=== PATIENT | male | born 2005 | race Two or more races ===

== ENCOUNTER 2024-07-08 12:56 | Emergency (ER) | payer OTHER ==
[~2024-07-08] VITALS: Ht 190.5 cm; Wt 66.2 kg
[2024-07-08 13:19] VITALS: TEMP 98.2
[2024-07-08] MEDS ORDERED: LIDO30AD10 TP (15:17)
[2024-07-08] MEDS ORDERED: CYCL5TAB PO (15:17)
[2024-07-08] MEDS ORDERED: IBUP-1955 PO (15:17)
[2024-07-08] MEDS ORDERED: KETOROLAC TROMETHAMINE 15 MG/ML VIAL ONE (15:39)
[2024-07-08] MEDS ORDERED: LIDOCAINE 5% (PATCH) 1 EA PATCH TP ONE (15:40)
[2024-07-08] MEDS: LIDOCAINE 5% (PATCH) 1 EA PATCH TP STA (15:48)
[2024-07-08] MEDS: KETOROLAC TROMETHAMINE 15 MG/ML VIAL IM ONE (15:52)
[2024-07-08 16:06] VITALS: BP 124/91; O2SAT 99
== END 2024-07-08 16:07 | disposition home or self-care (01) ==
LOC: ER 13:03
DX: S46.912A Strain of unspecified muscle, fascia and tendon at shoulder and upper arm level, left arm, initial encounter (principal); S16.1XXA Strain of muscle, fascia and tendon at neck level, initial encounter; S09.90XA Unspecified injury of head, initial encounter; M79.642 Pain in left hand; R29.898 Other symptoms and signs involving the musculoskeletal system; V43.52XA Car driver injured in collision with other type car in traffic accident, initial encounter; Y93.89 Activity, other specified; Y92.488 Other paved roadways as the place of occurrence of the external cause; Y99.8 Other external cause status
CPT/HCPCS: 99285; 72125; 96372; 73030; 70450; J1885